=== PATIENT | male | born 1965 | race Caucasian/White ===

== ENCOUNTER → 2017-06-24 13:03 | Outpatient (CLI) | payer BC, MEDICARE, SELFPAY ==
[2017-06-24 13:28] LABS: Blood Urea Nitrogen 15 mg/dL (7-18); Creatinine,Serum 0.89 mg/dL (0.70-1.30); Estimated Glomerular Filt Rate 90 ml/min (>60); GFR (African American) 109 ML/MIN (>60)
--- NOTE | 2017-06-24 13:45 | CT_ITS ---
CT soft tissue neck w con INDICATION: ITS.REASON: MELANOMA OF NECK ORDERING PHYSICIAN: Ronni Samson MD PATIENT AGE: 51 years COMPARISON: None TECHNIQUE: Axial images are obtained without contrast. Sagittal and coronal reformatted images are reviewed as well. FINDINGS: No dominant adenopathy evident. Once again there is noted a small right jugulodigastric lymph node measuring approximately 2 x 1 cm it may be slightly smaller than when compared to the previous exam. Other smaller lymph nodes are present as before. The nasopharynx is unremarkable as is the epiglottis, hypopharynx, and glottic region. The trachea and esophagus are midline in the neck. No thyroid mass evident. Lung apices are clear. IMPRESSION: Overall stable CT appearance of the neck. No adenopathy or other significant anomalies evident. Stable 2 x 1 cm right jugulodigastric node
--- NOTE | 2017-06-24 13:59 | HMH.ITSHM ---
PERCOCET CIMBALTA NEXIUM
== END ==
PROVIDERS: Family Provider Physician Assistant; PCP Emergency Medicine; Visit Provider Otolaryngology
DX: C43.4 Malignant melanoma of scalp and neck (principal)
CPT/HCPCS: 36415; 70491; 82565; 84520; Q9967

== ENCOUNTER → 2018-03-30 14:11 | Outpatient (CLI) | payer BC, MEDICARE, SELFPAY ==
--- NOTE | 2018-03-30 14:13 | MR_ITS ---
MR lumbar spine wo con, MR 3-d myelogram/MRCP HISTORY: LT leg pain, numbness, and tingling. X6wks. No trauma. , Low back pain with left leg pain, prior fracture ITS.REASON: LBP LLE radicular sx ORDERING PHYSICIAN: ARIANE Porter PATIENT AGE: 52 years Comparison: MRI 06-06-16 TECHNIQUE: Standard multiplanar multiecho sequences are performed without contrast. 3-D MIP and myelographic images are also rendered and reviewed FINDINGS: The spinal cord ends at the L1-L2 level. There is an old fracture of the L2 vertebral body with minimal bowing of the posterior aspect of the L2 vertebral body posteriorly by approximately 4 mm similar to the previous exam. L1-L2: Degenerative disc disease with mild bulging disc. A small area of increased T2 signal is present along the lamina on the left at L2 and may be due to postsurgical changes similar to the previous exam. There is a defect within the lamina at this region L2-L3: Mild degenerative disc disease. L3-L4: Mild facet hypertrophic change. L4-L5: Prominent facet hypertrophic change posterior elements which may be due to prior bony fusion similar to the previous exam. There is a bulging disc with small central disc herniation with mild inferior extrusion at this level with resultant severe canal stenosis along with lateral lateral recess and foraminal narrowing with facet and ligamentum flavum hypertrophy. The inferior disc extrusion appears slightly larger than when compared to the previous exam. The canal stenosis and lateral recess narrowing on the right appear somewhat larger. The myelographic images show a larger filling defect within the right aspect of the canal at this level compared to previous study. L5-S1: Degenerative disc disease with a concentric bulging disc along with a broad-based central and left paracentral disc protrusion/herniation. The disc herniation is larger than when compared to the previous study with increased mass effect upon the thecal sac and also impinges upon the left S1 nerve root as well as causing severe foraminal narrowing on the left.. IMPRESSION: 1. Abnormal MRI the lumbar spine. There is an old fracture at L2 with degenerative disc disease at L1-L2 and L2-L3 not significant changed. The lamina defect is present on the left at L2 similar to the previous exam. 2. L4-L5: Prominent facet hypertrophic change posterior elements which may be due to prior bony fusion similar to the previous exam. There is a bulging disc with small central disc herniation with mild inferior extrusion at this level with resultant severe canal stenosis along with lateral lateral recess and foraminal narrowing with facet and ligamentum flavum hypertrophy. The inferior disc extrusion appears slightly larger than when compared to the previous exam. The canal stenosis and lateral recess narrowing on the right appear somewhat greater. The myelographic images show a larger filling defect within the right aspect of the canal at this level compared to previous study. 3. L5-S1: Degenerative disc disease with a concentric bulging disc along with a broad-based central and left paracentral disc protrusion/herniation. The disc herniation is larger than when compared to the previous study with increased mass effect upon the thecal sac and also impinges upon the left S1 nerve root as well as causing severe foraminal narrowing on the left..
== END ==
PROVIDERS: PCP Physician Assistant; Visit Provider Physician Assistant
DX: M54.16 Radiculopathy, lumbar region (principal)
CPT/HCPCS: 72148; 76376

== ENCOUNTER → 2018-07-17 11:14 | Outpatient (CLI) | payer BC, MEDICARE, SELFPAY ==
--- NOTE | 2018-07-17 11:18 | MR_ITS ---
MR lumbar spine wo con, MR 3-d myelogram/MRCP HISTORY: Recent lumbar surgery with post operative pain, LT leg pain, numbness, and tingling. Pain worse after surgery. MRI 03/30/18. ITS.REASON: severe pain with bilateral radiculopathy r/o osteo ORDERING PHYSICIAN: ARIANE Porter PATIENT AGE: 53 years Comparison: 03/30/2018 TECHNIQUE: Standard multiplanar multiecho sequences are performed without contrast. 3-D MIP and myelographic images are also rendered and reviewed FINDINGS: Spinal cord ends at the L1-L2 level. An old fracture once again noted at L2 minimal filling of the posterior aspect of L2 vertebral body similar to the previous exam. Postlaminectomy changes on the left at L2. L2-L3: Degenerative disc disease. L3-L4: Unremarkable. L4-5: Bulging disc with minimal broad-based central disc protrusion. Posterior bony fusion at L4-L5 with prominent bony hypertrophy and canal stenosis with lateral recess and foraminal narrowing as before. Small central disc herniation with minimal inferior effusion as before. L5-S1: There is a small central disc herniation. Previously there was a broad-based central and left paracentral disc herniation. The left paracentral aspect of the disc is no longer apparent presumed status post partial discectomy at this region. There is some increased T2 signal in the left paracentral portion of the previously noted disc suggests a small amount of postoperative fluid in this area. There is abnormal signal is around the left S1 nerve root. Unfortunately IV contrast was not utilized to evaluate for enhancement in this region. Also, there is decreased T1 and increased T2 signal of the mid and lower aspect of the L5 vertebral body and the superior endplate of S1. This has developed since the previous exam. There is some minimal bandlike area of increased T2 signal along the superior aspect of the disc at this region. These findings may be related to spondylodiscitis . The anterior aspect of the disc has an unremarkable appearance. No paraspinal phlegmonous change mass or obvious abscess anteriorly. Edematous changes are present in the soft tissues posteriorly and on the left at the L5-S1 region IMPRESSION: 1. Postsurgical changes at L5-S1. Previously noted broad-based central left paracentral disc protrusion is smaller with the lateral aspect of the disc not apparent on today's study presumed due to the partial discectomy. There are postsurgical changes at this region. There is a small amount of loculated fluid in the region of the discectomy site which could be postsurgical seroma or even abscess. This surrounds left S1 nerve root and this extends slightly superior to the disc. Edematous changes are present involving the L5 vertebral body centrally and inferiorly with some increased T2 signal also of the disc and the superior endplate of S1. This is suspicious for spondylodiscitis. Repeat exam without and with gadolinium may add further value. There remains a small central disc herniation at L5-S1 2. L4-5: Bulging disc with minimal broad-based central disc protrusion. Posterior bony fusion at L4-L5 with prominent bony hypertrophy and canal stenosis with lateral recess and foraminal narrowing as before. Small central disc herniation with minimal inferior effusion as before.
== END ==
PROVIDERS: PCP Physician Assistant; Visit Provider Physician Assistant
DX: G89.18 Other acute postprocedural pain (principal); M54.16 Radiculopathy, lumbar region
CPT/HCPCS: 72148; 76376

== ENCOUNTER → 2018-07-21 13:20 | Outpatient (CLI) | payer BC, MEDICARE, SELFPAY ==
[2018-07-21 13:45] LABS: Basophils % 0.4 % (0.1-2.0); Eosinophils # 0.2 K/mm3 (0.0-0.4); Eosinophils % 2.7 % (0.1-12.0); Hemoglobin 14.9 g/dL (14.1-18.0); Lymphocytes # 2.2 K/mm3 (0.7-4.5); Lymphocytes % 27.4 % (10-50); Mean Corpuscular HGB Conc 33.9 g/dL (31.8-35.4); Mean Corpuscular Volume 85.5 fl (80-94); Mean Platelet Volume 6.9 fl (7.4-10.4); Monocytes # 0.5 K/mm3 (0.1-1.0); Monocytes % 6.3 % (1.7-9.3); Neutrophils # 5.2 K/mm3 (1.8-7.8); Neutrophils % 63.2 % (37.0-80.0); Platelet Count 357 K/mm3 (142-424); Red Blood Count 5.14 M/mm3 (4.60-6.20); Red Cell Distribution Width 12.4 % (11.5-17.5); White Blood Count 8.2 K/mm3 (4.8-10.8)
[2018-07-21 14:30] LABS: Erythrocyte Sedimentation Rate 16 mm/hr (0-20)
[2018-07-21 15:17] LABS: Blood Urea Nitrogen 16 mg/dL (7-18); Creatinine,Serum 0.93 mg/dL (0.70-1.30); Estimated Glomerular Filt Rate 85 ml/min (>60); GFR (African American) 103 ML/MIN (>60)
[2018-07-21 15:18] LABS: C-Reactive Protein 0.7 mg/L (0.0-0.9)
== END ==
PROVIDERS: Visit Provider Physician Assistant
DX: G89.18 Other acute postprocedural pain (principal)
CPT/HCPCS: 36415; 82565; 84520; 85025; 85651; 86140; 87040

== ENCOUNTER → 2018-07-23 10:14 | Outpatient (CLI) | payer BC, MEDICARE, SELFPAY ==
--- NOTE | 2018-07-23 10:16 | MR_ITS ---
MR lumbar spine wo/w con, MR 3-d myelogram/MRCP HISTORY: Sudden low back pain, recent back surgery, follow-up abnormal MRI of 07/17/2018. Abnormal MRI 07-17-18. LBP on LT side. Prior hx back surgery May 25. .REASON: possible spondylodiscitis ORDERING PHYSICIAN: ARIANE Porter PATIENT AGE: 53 years Comparison: 07/17/2018 TECHNIQUE: Standard multiplanar multiecho sequences are performed without contrast. 3-D MIP and myelographic images are also rendered and reviewed FINDINGS: There has been extensive surgery with fusion of the L1-L5 posterior elements as described previously in the CT scan of 07/02/2018. There is an old fracture of L2 with mild retrolisthesis of the posterior superior aspect of the L2 vertebral body with a defect in the left lamina at this area as before.. L2-L3 and L3-L4 unremarkable. L4-5: Bulging disc along with facet and ligamentum hypertrophy with posterior element fusion with canal stenosis 7 mm with severe bilateral lateral recess narrowing and moderate to severe bilateral foraminal narrowing. Is is unchanged. Minimal central disc protrusion noted at this level as well. L5-S1: Postsurgical changes are once again noted from prior meniscectomy on the left. Medium size central disc protrusion once again noted very slightly eccentric to the left causing canal stenosis. Decreased T1 and increased T2 signal involves the mid and inferior aspect of the L5 vertebral body and the superior endplate of S1 posteriorly. There remains some increased T2 signal of the disc. It is mild enhancement of the inferior endplate of L5 centrally. There is isointense signal in the menisci and may side surrounding the left S1 nerve root. This does demonstrate contrast enhancement but does not have typical signal characteristics for an epidural abscess. This may represent epidural fibrosis. No obvious epidural abscess evident. IMPRESSION: 1. Postsurgical changes at L5-S1 with medium sized residual central disc protrusion slightly eccentric toward the left. There is isointense signal in the discectomy site and surrounding the left S1 nerve root which does show some mild contrast enhancement suggesting epidural fibrosis/inflammatory change. No obvious epidural abscess 2. There remains abnormal signal intensity of the opposing vertebral bodies at L5-S1 with some minimal endplate enhancement inferiorly at L5 slight increase in T2 signal of the disc. Cannot exclude the possibility of spondylitic discitis. This however is not significantly changed and may merely represent severe type I endplate changes. Please correlate with patient's clinical status i.e. sedimentation rate, white blood cell count 3. Extensive posterior element postsurgical changes from L1 to L5 with old fracture of L2 and canal stenosis at L3. 3. Small central disc protrusion at L4-L5 with canal stenosis
== END ==
PROVIDERS: PCP Physician Assistant; Visit Provider Physician Assistant
DX: G89.18 Other acute postprocedural pain (principal)
CPT/HCPCS: 72158; 76376; A9576

== ENCOUNTER → 2018-08-27 13:19 | Outpatient (POV) | payer BC, MEDICARE, SELFPAY | PROVIDERS: Visit Provider Neurological Surgery | DX: Z00.00 Encounter for general adult medical examination without abnormal findings (principal) ==

== ENCOUNTER → 2018-08-31 13:53 | Outpatient (CLI) | payer BC, MEDICARE, SELFPAY ==
[2018-08-31 14:29] LABS: Amphetamine/Metha Screen,Urine Negative ng/mL (<1000); Barbiturates Screen,Urine Negative ng/mL (<200); Benzodiazepines Screen,Urine Negative ng/mL (<200); Cannabinoid Screen,Urine Negative ng/mL (<50); Cocaine Screen,Urine Negative ng/mL (<300); Methadone Screen,Urine Negative ng/mL (<300); Opiate Screen,Urine Negative ng/mL (<300); Phencyclidine Screen,Urine Negative ng/mL (<25)
[2018-09-15 06:07] LABS: Opiates Negative (Cutoff=100)
== END ==
PROVIDERS: Visit Provider Emergency Medicine
DX: Z79.899 Other long term (current) drug therapy (principal)
CPT/HCPCS: 80305; 80361; 80365; G0480

== ENCOUNTER → 2018-09-21 10:18 | Outpatient (CLI) | payer BC, MEDICARE, SELFPAY ==
--- NOTE | 2018-09-21 11:10 | CT_ITS ---
CT soft tissue neck w con CLINICAL INDICATION: Follow-up melanoma ORDERING PHYSICIAN: Ronni Samson MD PATIENT AGE: 53 years COMPARISON: 06/24/2017 TECHNIQUE:Axial images obtained following the intravenous administration of 75 mL's Omnipaque 350 sagittal and coronal reformats. All CT scans at the facility use one or more dose reduction, viz: automated exposure control, ma/kV adjustment per patient size (including targeted exams where dose is matched to indication, i.e. head), or iterative reconstruction technique. FINDINGS: The nasopharynx and orbits have an unremarkable appearance. The carotid and submandibular glands are unremarkable. There are few scattered small lymph nodes in the neck. There is a 4 mm isodensity in the left lobe of thyroid gland nonspecific. No dominant adenopathy. No mass or abnormal fluid collection evident. Lung apices are clear. The infraglottic and glottic region are unremarkable. Stable 2 x 1 cm right jugular digastric lymph node. IMPRESSION: Stable CT appearance of the neck. No adenopathy abnormal fluid collection or other significant anomalies
== END ==
PROVIDERS: PCP Physician Assistant; Visit Provider Otolaryngology
DX: C43.9 Malignant melanoma of skin, unspecified (principal)
CPT/HCPCS: 70491

== ENCOUNTER → 2018-09-21 10:27 | Outpatient (POV) | payer BC, MEDICARE, SELFPAY ==
[2018-09-21 10:40] VITALS: BP 132/87
--- NOTE | 2018-09-21 10:45 | HMH.PMCON ---
Assessment and Plan (1) Post laminectomy syndrome Current visit: Yes Status: Chronic Category: Medical Code(s): M96.1 - Postlaminectomy syndrome, not elsewhere classified (2) Disc degeneration, lumbosacral Current visit: No Status: Chronic Category: Medical Code(s): M51.37 - Other intervertebral disc degeneration, lumbosacral region (3) Lumbar radiculopathy, chronic Current visit: No Status: Chronic Category: Medical Code(s): M54.16 - Radiculopathy, lumbar region - Assessment and plan all Dx Assessment and Plan for all problems:: Patient may be a candidate for neuro stimulation I gave him information in regards to this. He is interested. He is in a call us if he would like to move forward with this. Patient is currently on Percocet 7.5 mg 1 p.o. twice daily from his primary care which is appropriate. I will follow-up with the patient on an as-needed basis. Dr. Amaral has reviewed this note and agrees with this plan of care. This note was dictated using voice recognition software and may contain errors or omissions HPI - Data of Consult Consult date: 09/21/18 Requesting Physician: Addie Martinez APRN Primary Care Provider: ARIANE Rubi - Consult Narrative Reason for consult: Back pain, leg pain History of present illness: Mr. Macedo is a 53 year old male who presents today for consultation in regards to his low back and leg pain. Patient has been in a pain clinic previously where he was receiving 240 Percocet however he was not taking these. Patient had multiple injections and does not want anymore he states that they have not been beneficial. He is tried and failed physical therapy. Tried and failed gabapentin Lyrica Cymbalta and Flexeril. Patient is currently on 7.5 mg of Percocet twice a day. Which is extremely appropriate for him. Patient has had 3 lumbar spine surgeries. Patient is interested in potential neuro stimulation. He rates his pain a 6 out of 10 mostly in his low back and bilateral legs CC: Addie Martinez APRN [facility] History I have reviewed the patient's past medical history: Yes Medical History: Reports:: Cancer, Depression, Gastroesophageal Reflux Disease(GERD) *Have you ever received a pneumonia vaccine?: No *Have you received a flu vaccine this season?: Yes Other Medical History: Reports: Arthritis Laterality Cases: Left: Arthroscopy Knee Other Surgeries: Yes: No Previous Surgery, Appendectomy, Other (back surgery x 4) Amputation: No Fractures: No - *Social History Smoking Status: Never smoker Alcohol Intake: never Alcohol Intake Frequency:: a few times a month Substance Use Type: denies use *Occupational Status:: employed Housing: house Household Members: family *Travel in the last 8 weeks: None - Psychiatric History Expresses thoughts of harming self/others: None Suicide Plan Description: No Plan Pschychiatric History:: Reports:: Depression Family Hx:: No significant family history Review of Systems - Review of Systems ROS General: no recent weight change, no fever, no sleep disturbances Respiratory: no cough, no shortness of air, no recurring pulmonary infections Cardiovascular/Peripheral Vascular: No chest pain, No palpitations, no edema, no shortness of breath. Gastrointestinal: no incontinence, normal bowel movements reported Genitourinary: no incontinence Musculoskeletal: Back pain, leg pain Psychiatric: normal mood/ affect, Neurological: [denies weakness in extremities], [denies balance issues] Meds Home Medications Medication Instructions Recorded Confirmed Type Pregabalin [Lyrica] 50 mg PO BID PRN 07/02/18 08/04/18 History duloxetine 20 mg capsule,delayed 30 mg PO DAILY 90 Days #135 cap 07/17/18 08/04/18 Rx release esomeprazole magnesium 40 mg 40 mg PO DAILY #90 cap 07/17/18 08/04/18 Rx capsule,delayed release oxycodone-acetaminophen 7.5 mg-325 1 tab PO BID PRN #60 tab 08/31/18 Rx mg tablet
--- NOTE | 2018-09-21 11:00 | P.CONS_ITS ---
Assessment and Plan (1) Post laminectomy syndrome Current visit: Yes Status: Chronic Category: Medical Code(s): M96.1 - Postlaminectomy syndrome, not elsewhere classified (2) Disc degeneration, lumbosacral Current visit: No Status: Chronic Category: Medical Code(s): M51.37 - Other intervertebral disc degeneration, lumbosacral region (3) Lumbar radiculopathy, chronic Current visit: No Status: Chronic Category: Medical Code(s): M54.16 - Radiculopathy, lumbar region - Assessment and plan all Dx Assessment and Plan for all problems:: Patient may be a candidate for neuro stimulation I gave him information in regards to this. He is interested. He is in a call us if he would like to move forward with this. Patient is currently on Percocet 7.5 mg 1 p.o. twice daily from his primary care which is appropriate. I will follow-up with the patient on an as-needed basis. Dr. Amaral has reviewed this note and agrees with this plan of care. This note was dictated using voice recognition software and may contain errors or omissions HPI - Data of Consult Consult date: 09/21/18 Requesting Physician: Addie Martinez APRN Primary Care Provider: ARIANE Rubi - Consult Narrative Reason for consult: Back pain, leg pain History of present illness: Mr. Macedo is a 53 year old male who presents today for consultation in regards to his low back and leg pain. Patient has been in a pain clinic previously where he was receiving 240 Percocet however he was not taking these. Patient had multiple injections and does not want anymore he states that they have not been beneficial. He is tried and failed physical therapy. Tried and failed gabapentin Lyrica Cymbalta and Flexeril. Patient is currently on 7.5 mg of Percocet twice a day. Which is extremely appropriate for him. Patient has had 3 lumbar spine surgeries. Patient is interested in potential neuro stimulation. He rates his pain a 6 out of 10 mostly in his low back and bilateral legs CC: Addie Martinez APRN [facility] History I have reviewed the patient's past medical history: Yes Medical History: Reports:: Cancer, Depression, Gastroesophageal Reflux Disease(GERD) *Have you ever received a pneumonia vaccine?: No *Have you received a flu vaccine this season?: Yes Other Medical History: Reports: Arthritis Laterality Cases: Left: Arthroscopy Knee Other Surgeries: Yes: No Previous Surgery, Appendectomy, Other (back surgery x 4) Amputation: No Fractures: No - *Social History Smoking Status: Never smoker Alcohol Intake: never Alcohol Intake Frequency:: a few times a month Substance Use Type: denies use *Occupational Status:: employed Housing: house Household Members: family *Travel in the last 8 weeks: None - Psychiatric History Expresses thoughts of harming self/others: None Suicide Plan Description: No Plan Pschychiatric History:: Reports:: Depression Family Hx:: No significant family history Review of Systems - Review of Systems ROS General: no recent weight change, no fever, no sleep disturbances Respiratory: no cough, no shortness of air, no recurring pulmonary infections Cardiovascular/Peripheral Vascular: No chest pain, No palpitations, no edema, no shortness of breath. Gastrointestinal: no incontinence, normal bowel movements reported Genitourinary: no incontinence Musculoskeletal: Back pain, leg pain Psychiatric: normal mood/ affect, Neurological: [denies weakness in extremities], [denies balance issues] Meds
== END ==
PROVIDERS: PCP Physician Assistant; Visit Provider Clinical Nurse Specialist Family Health
DX: M96.1 Postlaminectomy syndrome, not elsewhere classified (principal); M51.37 Other intervertebral disc degeneration, lumbosacral region; M54.16 Radiculopathy, lumbar region
CPT/HCPCS: 99202

== ENCOUNTER → 2019-12-03 11:13 | Outpatient (CLI) | payer BC, MEDICARE, SELFPAY ==
--- NOTE | 2019-12-03 11:55 | CT_ITS ---
PROCEDURE: CT SOFT TISSUE NECK W CON CLINICAL HISTORY: hx malignant neoplasm neck Malignant melanoma of the left neck COMPARISON: NECKW CT soft tissue neck w con from 09/21/2018 TECHNIQUE: Oral Contrast: None IV Contrast: 75 mL Optiray 350 Axial images obtained with sagittal and coronal reformats. All CT scans at the facility use one or more dose reduction, viz: automated exposure control, ma/kV adjustment per patient size (including targeted exams where dose is matched to indication, i.e. head), or iterative reconstruction technique. FINDINGS: The nasopharynx, hypopharynx, oropharynx, glottic region and subglottic area have an unremarkable appearance. There is a stable 5 mm hypodensity of the left lobe of the thyroid. There is scattered small nodes in the neck including a 2 x 0.9 cm node in the left supraclavicular region which is not significantly changed. No dominant adenopathy is evident. The epiglottis has an unremarkable appearance there is degenerative disc disease at C5-C6. The lung apices are clear. IMPRESSION: Stable CT appearance of the neck. Dictated by: Yves Rahman MD 12/04/2019 08:26 Electronically signed by Yves Rahman MD in [place] 12/04/2019 08:26
[2019-12-03 12:07] LABS: Blood Urea Nitrogen 15 mg/dl (9-20); Estimated Glomerular Filt Rate 101 ml/min (>60); GFR (African American) 122 ML/MIN (>60)
== END ==
PROVIDERS: PCP Physician Assistant; Visit Provider Otolaryngology
DX: C43.4 Malignant melanoma of scalp and neck (principal)
CPT/HCPCS: 36415; 70491; 82565; 84520; Q9967

== ENCOUNTER → 2019-12-29 09:30 | Outpatient (CLI) | payer BC, MEDICARE, SELFPAY ==
--- NOTE | 2019-12-29 09:30 | US_ITS ---
PROCEDURE: US FNA OTHER CLINICAL INDICATION: Enlarged left cervical lymph node with history of malignant melanoma COMPARISON: CT CT SOFT TISSUE NECK W CON from 12/03/2019 TECHNIQUE: Following obtaining informed consent, using aseptic technique and local anesthesia with buffered lidocaine, fine-needle aspiration was performed of the left lower neck lymph node of interest using sonographic guidance. 3 passes were made into the nodule with a 21-gauge needle. To the specimens was sent for FNA and 1 sent for RPMI. Core biopsy was not performed due to the small nature of the node and its location immediately adjacent to the jugular vein. FINDINGS: CYTOLOGY: Negative for malignant cells. Please see cytology report IMPRESSION: Ultrasound-guided FNA of left cervical lymph node was negative for malignant cells. The patient tolerated the procedure well without evidence of immediate complications and left the ultrasound suite in stable condition. Dictated by: Yves Rahman MD 01/10/2020 09:32 Yves Rahman MD in [facility] 01/10/2020 09:32
== END ==
PROVIDERS: PCP Physician Assistant; Visit Provider Otolaryngology
DX: R59.0 Localized enlarged lymph nodes (principal)
CPT/HCPCS: 10005; 76942

== ENCOUNTER 2020-03-02 19:56 | Emergency (ER) | payer BC, MEDICARE, SELFPAY ==
[2020-03-02 20:03] VITALS: BP 198/110; PULSE 78; RESP 18; TEMP 36.7; O2SAT 98; BMI 29.6
--- NOTE | 2020-03-02 20:16 | CT_ITS ---
PROCEDURE: CT HEAD/BRAIN WO CON CLINICAL INDICATION: fall Head injury with headache/pain, contusion, abrasion or hematoma Loss of consciousness COMPARISON: No exams were available for comparison TECHNIQUE: Axial images obtained. All CT scans at the facility use one or more dose reduction, viz: automated exposure control, ma/kV adjustment per patient size (including targeted exams where dose is matched to indication, i.e. head), or iterative reconstruction technique. FINDINGS: No midline shift, mass effect, intracranial hemorrhage, hydrocephalus, or extra-axial fluid collection is evident. The calvarium has an unremarkable appearance. No mastoid effusion. No sinus air-fluid level. IMPRESSION: No acute intracranial finding Dictated by: Yves Rahman MD 03/03/2020 05:40 Yves Rahman MD in [facility] 03/03/2020 05:40
--- NOTE | 2020-03-02 20:16 | HMH.EDGENADL ---
ED Disposition Clinical Impression: Elevated blood pressure reading Scalp contusion Qualifiers: Encounter type: initial encounter Qualified Code(s): S00.03XA - Contusion of scalp, initial encounter Concussion Qualifiers: Encounter type: initial encounter Loss of consciousness presence/duration: with LOC of 30 min or less Qualified Code(s): S06.0X1A - Concussion with loss of consciousness of 30 minutes or less, initial encounter Cervical strain Qualifiers: Encounter type: initial encounter Qualified Code(s): S16.1XXA - Strain of muscle, fascia and tendon at neck level, initial encounter Disposition: Home, Self-Care Condition on Discharge: Good Instructions: DI for Closed Head Injury, DI for Neck Sprain Additional Instructions: Additional instructions for HEAD INJURY: See your physician as soon as possible for further evaluation. Return immediately if severe headache, vomiting, problems with vision or speech, numbness or weakness of the extremities, or severe neck pain. Additional instructions regarding BLOOD PRESSURE: One or more of your blood pressure readings elevated today. Please contact your primary care physician for further evaluation or treatment of your blood pressure. Referrals: India Matias PA [Primary Care Provider] - - Critical Care Critical Care Time: No Attestation: On 03/02/20, the high probability of a clinically significant, sudden or life threatening deterioration of the following system(s) required my full and direct attention, intervention and personal management. The time I documented below is in addition to time spent performing reported procedures but includes the following listed in this critical care notation. Medical Decision Making - Thomas Inquiry Pt receiving controlled substance: No Vital Signs: 03/02/20 20:03 Temperature 98.1 F Temperature Source Oral Pulse Rate [Right Brachial] 78 Respiratory Rate 18 Blood Pressure [Right Arm] 198/110 H Blood Pressure Mean [Right Arm] 139 Blood Pressure Source [Right Arm] Automatic Cuff Blood Pressure Position [Right Arm] Sitting 02 Sat by Pulse Oximetry 98 Oxygen Delivery Method Room Air Orders (Tests/Meds): ORDERS Category Date Time Status CT cervical spine wo con Stat Cat Scan 03/02/20 20:[address] head/brain wo con Stat Cat Scan 03/02/20 20:16 Taken - CT Data CT Scan: Head, C-Spine Time Received: 21:20 ([facility] fax) ED CT Reviewed: Yes: I have viewed the radiologist's interpretation Findings Narrative: Head: No acute intracranial process. Cervical spine: No evidence of fracture or acute traumatic subluxation. Mild reversal of cervical lordosis suggesting a possible element of muscular strain/spasm. Slight 2 mm degenerative retrolisthesis of C5-C6. Moderate degenerative disc disease C5-C6. Bilateral foraminal stenoses as detailed above. General Adult HPI - General Chief complaint: Fall Stated complaint: AO [id number] Tripped over chair , hit head Time Seen by Provider: 03/02/20 20:17 Mode of Arrival: Family Vehicle Limitations: No Limitations Description of Symptoms (Recalled from ER Triage Doc. by RN): pt states he fell last night secondary to a dog jumping on his upper side while he was sitting in an office chair. the chair tipped over and he landed on the concrete floor. pos loc x1 min with spontaneous return to consciousness. denies n/v. states he has a bruise on his right side head, that he doesn't take any blood thinning meds, but he has a headache that excedrin migraine won't cure and he feels fatigue and wants to be evaluated for peace of mind . denies other complaints. ambulated independently into facility. - History of Present Illness HPI narrative: Last night while sitting in a chair his dog jumped on his chest and pushed him over backwards causing him to his right side of his head. LOC documented by family for <= 1 min. Headache since. Headache migrating today to right retroorbita
--- NOTE | 2020-03-02 20:18 | CT_ITS ---
PROCEDURE: CT CERVICAL SPINE WO CON CLINICAL INDICATION: fall Neck injury with pain, contusion/abrasion or hematoma, cervical sprain/strain the COMPARISON: No exams were available for comparison TECHNIQUE: Axial images obtained with sagittal and coronal reformats. All CT scans at the facility use one or more dose reduction, viz: automated exposure control, ma/kV adjustment per patient size (including targeted exams where dose is matched to indication, i.e. head), or iterative reconstruction technique. Axial spiral CT scanning performed of the cervical spine beginning at the base of the skull and continuing to the upper T-spine. 3-D multiplanar reconstruction with 3-D manipulation of volumetric data set in image rendering was completed by the radiologist and/or technologist with the supervision of the radiologist on independent workstation. FINDINGS: No fracture or dislocation. There is straightening of the cervical lordosis. Degenerative disc disease is present at C5-C6. With endplate spurring mild right and severe left-sided foraminal narrowing. There is mild degenerative disc disease at C6-C7 with bilateral foraminal narrowing. Lung apices are clear. Scattered small nodes are present in the neck. Nuchal ligament calcification noted. IMPRESSION: 1. No acute fracture. 2. Cervical spondylosis as detailed above. Dictated by: Yves Rahman MD 03/03/2020 05:39 Yves Rahman MD in [facility] 03/03/2020 05:39
--- NOTE | 2020-03-02 20:51 | PC.NURSE ---
back from ct
[2020-03-02 21:58] VITALS: BP 160/96; PULSE 83; RESP 14; TEMP 36.7; O2SAT 96
== END 2020-03-02 22:00 | disposition home or self-care (01) ==
PROVIDERS: Emergency Provider Emergency Medicine; PCP Physician Assistant
DX: S06.0X1A Concussion with loss of consciousness of 30 minutes or less, initial encounter (principal); S16.1XXA Strain of muscle, fascia and tendon at neck level, initial encounter; S00.03XA Contusion of scalp, initial encounter; W07.XXXA Fall from chair, initial encounter; Y92.019 Unspecified place in single-family (private) house as the place of occurrence of the external cause; Z88.0 Allergy status to penicillin; K21.9 Gastro-esophageal reflux disease without esophagitis
CPT/HCPCS: 70450; 72125; 99282

== ENCOUNTER → 2020-12-04 14:58 | Outpatient (CLI) | payer BC, MEDICARE, SELFPAY ==
[2020-12-04 16:20] LABS: Blood Urea Nitrogen 10 mg/dl (9-20); Estimated Glomerular Filt Rate 117 ml/min (>60); GFR (African American) 142 ML/MIN (>60)
== END ==
PROVIDERS: Visit Provider Otolaryngology
DX: Z01.812 Encounter for preprocedural laboratory examination (principal); R59.0 Localized enlarged lymph nodes
CPT/HCPCS: 36415; 82565; 84520

== ENCOUNTER → 2020-12-06 12:30 | Outpatient (CLI) | payer BC, MEDICARE, SELFPAY ==
--- NOTE | 2020-12-06 12:30 | CT_ITS ---
PROCEDURE: CT SOFT TISSUE NECK W CON CLINICAL HISTORY: hx melanoma left neck 3 yrs prior Follow up [facility] lymph node Enlarged lymph nodes No palp nodule COMPARISON: CT NECKW CT soft tissue neck w con from 06/24/[address] SOFT TISSUE NECK W CON from 12/03/2019 TECHNIQUE: Oral Contrast: None IV Contrast: None Axial images obtained with sagittal and coronal reformats. All CT scans at the facility use one or more dose reduction, viz: automated exposure control, ma/kV adjustment per patient size (including targeted exams where dose is matched to indication, i.e. head), or iterative reconstruction technique. FINDINGS: No sinus air-fluid level or mucosal thickening aside from a small opacified posterior ethmoid air cell on right. The frontal sinuses are not pneumatized in eyes. Orbits have an unremarkable appearance. No obvious nasopharyngeal mass. The oropharynx and hypopharynx have an unremarkable appearance. The epiglottis and glottic region are unremarkable. Stable 5 mm nodule of the left lobe of the thyroid gland. There are few scattered small lymph nodes within the neck. No enlarged lymph nodes are apparent a small node is present posterior to the sternocleidomastoid in the supraclavicular region on the left at 2.3 x 0.9 cm unchanged. No new lymph nodes are apparent. Lung apices are clear. Degenerative disc disease is present at C5-C6. No acute bony findings. There is some minimal nuchal ligament calcification.. IMPRESSION: Stable CT appearance of the neck as detailed above. Dictated by: Yves Rahman MD 12/07/2020 09:20 Yves Rahman MD in [facility] 12/07/2020 09:20
== END ==
PROVIDERS: PCP Physician Assistant; Visit Provider Otolaryngology
DX: R59.0 Localized enlarged lymph nodes (principal)
CPT/HCPCS: 70491

== ENCOUNTER → 2021-11-20 08:37 | Outpatient (CLI) | payer BC, MEDICARE, SELFPAY ==
--- NOTE | 2021-11-20 08:45 | XR_ITS ---
FINAL REPORT CLINICAL HISTORY: Possible fracture FINDINGS: 3 views of the left wrist were obtained. There is no acute fracture or dislocation. The joint spaces are intact. There is no soft tissue abnormality. IMPRESSION: No acute abnormality. Reviewed, Interpreted and Dictated by Jack Matthews MD Transcribed by Rolando Koch Authenticated and [facility]
== END ==
PROVIDERS: PCP Physician Assistant; Visit Provider Physician Assistant
DX: M25.532 Pain in left wrist (principal); M25.432 Effusion, left wrist
CPT/HCPCS: 73110

== ENCOUNTER → 2021-12-07 07:45 | Outpatient (CLI) | payer BC, MEDICARE, SELFPAY ==
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
== END ==
PROVIDERS: PCP Physician Assistant; Visit Provider Physician Assistant
DX: M79.645 Pain in left finger(s) (principal)
CPT/HCPCS: 73218

== ENCOUNTER → 2022-01-10 16:49 | Outpatient (CLI) | payer BC, MEDICARE, SELFPAY ==
--- NOTE | 2022-01-10 16:49 | MR_ITS ---
PROCEDURE INFORMATION: Exam: MR Left Upper Extremity Joint Without Contrast; Wrist Exam date and time: 01/10/2022 4:53 PM Age: 56 years old Clinical indication: Pain; Wrist; Left; Additional info: Wrist pain. Posterior and lateral sided wrist pain for 2 months. [place] a pop in wrist 1 month ago. TECHNIQUE: Imaging protocol: Magnetic resonance imaging of the Left upper extremity without contrast. Exam focused on the wrist. COMPARISON: CR XR WRIST LT MIN 3V 11/20/2021 8:52 AM FINDINGS: Bones and cartilage: Limited degenerative cystic changes in the carpus. No acute fracture or suspicious marrow signal. Moderate osteoarthritis 1st carpometacarpal articulation. Joint spaces: No joint effusion. Scapholunate ligament: Unremarkable. No tear. Lunotriquetral ligament: Unremarkable. No tear. Triangular fibrocartilage complex: Unremarkable. No tear. Flexor compartment tendons: Unremarkable. No tear. Extensor compartment tendons: The extensor carpi ulnaris tendon is dislocated anteriorly out of the the distal ulnar osseous total some flattening but no jorge tear of the tendon itself. Irregularity and probable tearing of the sub sheath. Muscles: Unremarkable. No acute abnormality. Soft tissues: Unremarkable. IMPRESSION: 1. The extensor carpi ulnaris tendon is dislocated anteriorly out of the the distal ulnar osseous tunnel with some flattening but no jorge tear of the tendon itself. Irregularity and probable tearing of the sub sheath. 2. Limited degenerative cystic changes in the carpus. No acute fracture or suspicious marrow signal. 3. Moderate osteoarthritis 1st carpometacarpal articulation.
== END ==
PROVIDERS: PCP Physician Assistant; Visit Provider Orthopaedic Surgery
DX: M25.532 Pain in left wrist (principal)
CPT/HCPCS: 73221